=== PATIENT | male | born 1960 | race Caucasian/White ===

== ENCOUNTER 2016-07-10 05:42 | Outpatient (CLI) | payer BC ==
[~2016-07-10] VITALS: Ht 167.6 cm; Wt 61.2 kg
[~2016-07-10 05:42] MED LIST: Tramadol Hcl PO
== END 2016-07-10 15:31 ==
LOC: PREOP 05:42
PROVIDERS: ATTEND Surgery Pediatric Surgery
DX: Z01.818 Encounter for other preprocedural examination (principal); Z86.010 Personal history of colon polyps

== ENCOUNTER 2016-07-11 08:22 | Day surgery (SDC) | payer BC ==
[~2016-07-11] VITALS: Ht 167.6 cm; Wt 61.2 kg
[2016-07-11] MEDS ORDERED: FLUMAZENIL (ROMAZICON) 0.1 MG/ML 5 ML VIAL INJ PRN (08:30)
[2016-07-11] MEDS ORDERED: NALOXONE 0.4 MG/ML 1 ML (NARCAN) VIAL IVP PRN (08:30)
[2016-07-11] MEDS ORDERED: NS IV 500 ML 500 ML IV PRN (08:30)
[2016-07-11] MEDS ORDERED: NS IV 500 ML 500 ML ONE (08:34)
[2016-07-11 08:53] VITALS: BP 117/80
[2016-07-11] MEDS ORDERED: fentaNYL INJECTION 100 MCG/2 ML AMP ONE ×2 (09:12)
[2016-07-11] MEDS ORDERED: MIDAZOLAM 2 MG/2 ML (VERSED) VIAL ONE ×5 (09:12→09:13)
[2016-07-11] MEDS ORDERED: LIDOCAINE JELLY 2% (XYLOCAINE) 5 ML TUBE ONE (09:12)
[2016-07-11] MEDS: fentaNYL INJECTION 100 MCG/2 ML AMP IVP PRN ×4 (09:24→09:43)
[2016-07-11] MEDS: MIDAZOLAM 2 MG/2 ML (VERSED) VIAL IVP PRN ×4 (09:25→09:42)
--- NOTE | 2016-07-11 09:31 | Conscious Sedation/ASA ---
Conscious Sedation Pre-Proced Time Reviewed: 09:00 ASA Class: 2 Airway Mallampati Classification: ([place] appropriate class) I. II. III, IV Lungs Heart ASA score ASA 1: a normal healthy patient ASA 2: a patient with a mild systemic disease (mid diabetes, controlled hypertension, obesity ASA 3: a patient with a severe systemic disease that limits activity (angina , COPD, prior Myocardial infarction) ASA 4: a patient with an incapacitating disease that is a constant threat to life (CHF, renal failure) ASA 5: a moribund patient not expected to survive 24 hrs. (ruptured aneurysm) ASA 6: a declared brain patient whose organs are being harvested. For emergent operations, add the letter E after the classification Grade 2 Sedation Plan: Analgesia, Amnesia, Plan communicated to team members, Discussed options with patient/fam, Discussed risks with patient/fam Note The patient is an appropriate candidate to undergo the planned procedure, sedation, and anesthesia. The patient immediately re-assessed prior to indication. ASHLEY MOREL MD July 11, 2016 9:31 am
--- NOTE | 2016-07-11 09:32 | Progress Note-Pre Operative ---
Pre-Operative Progress Note H&P Reviewed The H&P was reviewed, patient examined and no changes noted. Date H&P Reviewed: July 11, 2016 Time H&P Reviewed: 09:00 Pre-Operative Diagnosis: hx large sessile sigmoid polyp ASHLEY MOREL MD July 11, 2016 9:32 am
[2016-07-11] MEDS ORDERED: morphine INJ 10 MG/ML 1ML (SYR OR VIAL) IV PRN (09:45)
[2016-07-11] MEDS ORDERED: ACETAMINOPHEN 325 MG TABLET/CAPLET (TYLENOL) PO PRN (09:45)
[2016-07-11] MEDS ORDERED: HYDROcodone/APAP 5 MG/325 MG (LORTAB) TAB PO PRN (09:45)
[2016-07-11] MEDS ORDERED: ONDANSETRON 4 MG/2 ML (SDV) Z0FRAN IV PRN (09:45)
--- NOTE | 2016-07-11 10:10 | Progress Note-Post Operative ---
Post-Operative Progess Note Surgeon (s)/Collection Systems Consultant (s) Surgeon ASHLEY MOREL MD Collection Systems Consultant: none Pre-Operative Diagnosis hx large sessile sigmoid polyp Post-Operative Diagnosis mild chronic stage 2 ext and int hemorrhoids, normal colorectal anastomosis, mild descending diverticulosis. Procedure & Operative Findings Date of Procedure 07/11/16 Procedure Performed/Findings Colonoscopy Anesthesia Type CS Estimated Blood Loss Estimated blood loss (mL): minimal Specimens/Packing Specimens Removed none ASHLEY MOREL MD July 11, 2016 10:10 am
--- NOTE | 2016-07-11 10:12 | Discharge Inst-Surgical ---
D/C Lap Instructions-ADRIEL Follow Up 5-7 years Activity as tolerated High Fiber Diet 25g or more per day Avoid Alcohol, Caffeine, Spicy [place] and Acid foods. Drink 64 fluid oz or more of fluids per day. Symptoms to Report: Fever over 101 degree F, Nausea/Vomiting If any problems/questions: Contact your physician or go to Emergency Room ASHLEY MOREL MD July 11, 2016 10:12 am
[2016-07-11 10:15] VITALS: BP 103/65
[2016-07-11] MEDS ORDERED: LIDOCAINE JELLY 2% (XYLOCAINE) 5 ML TUBE TOP ONE (10:30)
[2016-07-11 10:45] VITALS: BP 111/75
[2016-07-11 12:10] VITALS: BP 111/75
--- NOTE | 2016-07-11 16:40 | OPERATIVE REPORT ---
DATE OF SERVICE: 07/11/2016 RESERVATIONS AND TICKETING AGENT: DIONY Panchal PREOPERATIVE DIAGNOSIS: History of large sessile sigmoid polyp. POSTOPERATIVE DIAGNOSES: Mild chronic stage II external and internal hemorrhoids, normal colorectal anastomosis, mild descending diverticulosis. PROCEDURE: Colonoscopy. SURGEON: Ashley Morel MD ANESTHESIA: Conscious sedation. ESTIMATED BLOOD LOSS: Minimal. FINDINGS: Chronic stage II external and internal hemorrhoids. Prostate gland was palpable and appeared normal. Mild descending colon diverticulosis. The remainder of the colon was normal. DISPOSITION: The patient tolerated the procedure well. INDICATIONS FOR PROCEDURE: The patient is a 55-year-old male known to us. He underwent a colonoscopy in 2013. He was found to have a large sessile polyp in the sigmoid colon. 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 Due to the size of lesion a followup colonoscopy was recommended and this was performed and the polyp reoccurred which was 2.2 cm in size. The size of the polyp was concerning for a focus of adenocarcinoma and he did opt for surgical resection. On 07/29/2014, he underwent a laparoscopic low anterior sigmoid colon resection. The pathology report came back as a tubulovillous adenoma with no dysplasia or invasive malignancy identified. At this time, he is doing well and states that he is tolerating a regular diet and having normal bowel movements. The patient was brought to the endoscopy suite, laid in the left lateral decubitus position. After IV pain and sedating medications were given and conscious sedation. A digital rectal examination was performed. Mild stage II chronic external and internal hemorrhoids were identified, which were not actively edematous nor inflamed and no bleeding. Prostate gland was palpable and appeared normal. The endoscope was then intubated into the anus and the rectum gently insufflated. The endoscope was then advanced to the valves of [place] of the rectum with no polyps or any neoplasms identified. The colorectal anastomosis was identified and was widely patent and no strictures identified. There was also no recurrent polyps or tumors. The endoscope was then advanced through the descending colon where mild descending diverticulosis identified. There were no mucosal inflammatory changes to indicate any diverticulitis. The endoscope was then advanced to the remainder of the descending, transverse and ascending colon to the cecum. These segments were normal. There were no polyps or any neoplasms identified throughout the colon or rectum. Endoscope was then slowly withdrawn with taking a second look and suctioning of residual air with no additional findings. The patient tolerated the procedure well. We will have him continue with medical management with high fiber diet with at least 30 grams of fiber per day, as well as at least 64 fluid ounces of water daily to promote soft stools on a daily basis. At this time, we feel that he does not need another colonoscopy for another 5-7 years because no malignancy was identified. If there are symptoms beforehand, he is instructed to follow up. Job ID: [id number] DocumentID: [id number] Dictated Date: 07/11/2016 10:11:32 Sheet Metal Fabricator Date: 07/11/2016 14:37:56 Dictated By: ASHLEY MOREL MD MTDD
== END 2016-07-11 11:00 | disposition home or self-care (01) ==
LOC: ENDO 08:22
PROVIDERS: ATTEND Surgery Pediatric Surgery
DX: K57.30 Diverticulosis of large intestine without perforation or abscess without bleeding (principal); K64.1 Second degree hemorrhoids; Z86.010 Personal history of colon polyps

== ENCOUNTER → 2019-04-27 | Outpatient (CLI) | payer BC ==
--- NOTE | 2019-04-27 09:34 | Diagnostic Imaging Report ---
PROCEDURE: MRI lumbar spine. TECHNIQUE: Multiplanar, multisequence MRI of the lumbar spine was performed without contrast. INDICATION: Increasing low back pain. COMPARISON: No prior studies are available for comparison. FINDINGS; There is some straightening of the normal lumbar lordotic curvature. Minimal retrolisthesis of L4 on L5 is noted. Vertebral body heights are maintained. There is some loss of height and signal intensity to the L5-S1 disc compatible with degenerative disc disease. There are some adjacent Modic changes. Conus is unremarkable at the L1 level. T12-L1: Central canal and neural foramina are widely patent. L1-T2: Central canal and neural foramina are widely patent. L2-L3: There is some mild ligamentous thickening but the central canal is widely patent. Neural foramina are patent. L3-L4: Ligamentous thickening and mild broad-based disc/osteophyte complex is noted flattening the ventral thecal sac. Central canal remains patent. There is very mild narrowing of the neural foramina bilaterally. L4-L5: Broad-based disc/osteophyte complex as well as mild wide-based midline disc bulge is seen. This does indent the ventral thecal sac. There is [id number] central canal narrowing. There is significant bilateral lateral recess stenosis. There is also moderate left and mild right neural foraminal stenosis. L5-S1: Broad-based disc/osteophyte complex indents the ventral thecal sac. There is mild narrowing of the central canal. There is moderate bilateral lateral recess stenosis with moderate bilateral neural foraminal stenosis. Paraspinous tissues are unremarkable. IMPRESSION: Multilevel lumbar spondylosis with multilevel central canal, lateral recess and neural foraminal stenosis described level by level above. Dictated by: Dictated on workstation # [id number]
== END ==
LOC: RAD 08:26
PROVIDERS: ATTEND Physician Assistant
DX: M48.07 Spinal stenosis, lumbosacral region (principal); M47.816 Spondylosis without myelopathy or radiculopathy, lumbar region; M51.26 Other intervertebral disc displacement, lumbar region; M51.37 Other intervertebral disc degeneration, lumbosacral region
CPT/HCPCS: 72148

== ENCOUNTER → 2022-12-25 | Outpatient (CLI) | payer OTHER ==
[2022-12-25] MEDS: CATHETER FLUSH 10 ML SYR IVP PRN (09:03)
--- NOTE | 2022-12-25 14:16 | Diagnostic Imaging Report ---
Reason for exam: Right upper quadrant pain. Comparison: None. Procedure: The patient was administered 5.43 millicuries of technetium 99m mebrofenin and 8 ounces of Ensure. A nuclear medicine hepatobiliary scan with ejection fraction was performed. Findings: There is prompt uptake and excretion of radiotracer by the liver. Activity is visible in the gallbladder by 20 minutes and the small bowel by 15 minutes. Ejection fraction of the gallbladder is calculated at 4% (normal >35%). Impression: 1. Abnormal ejection fraction of 4%, which can be seen with gallbladder dyskinesia. Recommend surgical consultation and follow-up as indicated. Dictated by: Dictated on workstation # [id number]
== END ==
LOC: CARD 08:35
PROVIDERS: ATTEND Surgery
DX: R10.11 Right upper quadrant pain (principal); R11.2 Nausea with vomiting, unspecified
CPT/HCPCS: 78227; A9537